=== PATIENT | male | born 1985 | race African-American/Black ===

== ENCOUNTER 2017-05-01 13:47 | Emergency (ER) | payer BC, SELFPAY | END 2017-05-01 15:08 | disposition home or self-care (01) | PROVIDERS: Emergency Provider Nurse Practitioner; Visit Provider Nurse Practitioner | DX: S62.91XA Unspecified fracture of right hand, initial encounter for closed fracture (principal); W22.8XXA Striking against or struck by other objects, initial encounter; Y92.019 Unspecified place in single-family (private) house as the place of occurrence of the external cause | CPT/HCPCS: 29125; 73130; 99203 ==

== ENCOUNTER → 2017-05-02 | Outpatient (CLI) | payer BC, SELFPAY | PROVIDERS: Family Provider Internal Medicine Adolescent Medicine; Visit Provider Orthopaedic Surgery | DX: M25.512 Pain in left shoulder (principal) | CPT/HCPCS: 73030 ==

== ENCOUNTER → 2017-05-15 10:30 | Outpatient (CLI) | payer BC, SELFPAY ==
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
== END ==
PROVIDERS: PCP Internal Medicine Adolescent Medicine; Visit Provider Orthopaedic Surgery
DX: S62.339D Displaced fracture of neck of unspecified metacarpal bone, subsequent encounter for fracture with routine healing (principal)
CPT/HCPCS: 73130

== ENCOUNTER → 2017-05-31 09:58 | Outpatient (CLI) | payer BC, SELFPAY ==
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
== END ==
PROVIDERS: PCP Internal Medicine Adolescent Medicine; Visit Provider Orthopaedic Surgery
DX: S69.90XA Unspecified injury of unspecified wrist, hand and finger(s), initial encounter (principal)
CPT/HCPCS: 73130

== ENCOUNTER → 2017-11-18 17:19 | Outpatient (CLI) | payer BC, SELFPAY ==
[2017-11-18 18:02] LABS: Basophils % 0.6 % (0.1-2.0); Eosinophils # 0.3 K/mm3 (0.0-0.4); Eosinophils % 3.7 % (0.1-12.0); Hematocrit 47.8 % (42.0-52.0); Hemoglobin 14.4 g/dL (14.1-18.0); Lymphocytes # 2.4 K/mm3 (0.7-4.5); Lymphocytes % 31.9 K/mm3 (10-50); Mean Corpuscular HGB Conc 30.2 g/dL (31.8-35.4); Mean Corpuscular Hemoglobin 24.8 pg (27.0-31.2); Mean Corpuscular Volume 82.2 fl (80-94); Mean Platelet Volume 7.6 fl (7.4-10.4); Monocytes # 0.5 K/mm3 (0.1-1.0); Monocytes % 6.1 % (1.7-9.3); Neutrophils # 4.3 K/mm3 (1.8-7.8); Neutrophils % 57.7 % (37.0-80.0); Platelet Count 358 K/mm3 (142-424); Red Blood Count 5.82 M/mm3 (4.60-6.20); Red Cell Distribution Width 13.5 % (11.5-17.5); White Blood Count 7.5 K/mm3 (4.8-10.8)
[2017-11-18 18:54] LABS: Alanine Aminotransferase 34 U/L (12-78); Albumin Level 3.7 gm/dL (3.4-5.0); Albumin/Globulin Ratio 0.9 (1.1-1.8); Alkaline Phosphatase 55 U/L (46-116); Anion Gap 10.4 mEq/L (5-15); Aspartate Amino Transferase 24 U/L (15-37); Bilirubin,Total 0.3 mg/dL (0.2-1.0); Blood Urea Nitrogen 8 mg/dL (7-18); Calcium 8.9 mg/dL (8.5-10.1); Carbon Dioxide 28 mmol/L (21.0-32.0); Chloride 106 mmol/L (98-107); Chol/HDL Ratio 2.8 (1-3.5); Cholesterol 122 mg/dL (140-200); Creatinine,Serum 0.93 mg/dL (0.70-1.30); Estimated Glomerular Filt Rate 94 ml/min (>60); GFR (African American) 113 ML/MIN (>60); Globulin 4.1 gm/dl (1.3-3.2); Glucose 93 mg/dL (74-106); HDL Cholesterol 44 mg/dL (27-67); LDL Cholesterol 47 mg/dL (0-130); Potassium 4.4 mmoL/L (3.5-5.1); Sodium 140 mmol/L (136-145); Thyroid Stimulating Hormone 1.99 uIU/ml (0.358-3.740); Total Protein,Serum 7.8 gm/dL (6.4-8.2); Triglycerides 157 mg/dL (30-200); Triiodothryronine (T3) Uptake 33 % (31-39); VLDL Cholesterol 31 mg/dL (0-40)
== END ==
PROVIDERS: Visit Provider Internal Medicine Adolescent Medicine
DX: Z00.00 Encounter for general adult medical examination without abnormal findings (principal); R40.0 Somnolence
CPT/HCPCS: 36415; 80053; 80061; 84436; 84443; 84479; 85025

== ENCOUNTER → 2017-12-11 15:58 | Outpatient (CLI) | payer BC, SELFPAY | PROVIDERS: PCP Internal Medicine Adolescent Medicine; Visit Provider Internal Medicine Adolescent Medicine | DX: G47.30 Sleep apnea, unspecified (principal); I10 Essential (primary) hypertension; R40.0 Somnolence; R06.83 Snoring; E66.9 Obesity, unspecified | CPT/HCPCS: 95806 ==

== ENCOUNTER → 2020-11-29 11:53 | Outpatient (CLI) | payer BC, SELFPAY | PROVIDERS: PCP Internal Medicine Adolescent Medicine; Visit Provider Internal Medicine Adolescent Medicine | DX: G47.33 Obstructive sleep apnea (adult) (pediatric) (principal); I10 Essential (primary) hypertension | CPT/HCPCS: G0399 ==

== ENCOUNTER 2020-12-24 11:05 | Observation (INO) | payer BC, SELFPAY ==
[2020-12-24] VITALS (9 sets, daily range): BP systolic 142–191; BP diastolic 87–113; PULSE 80–89; RESP 10–33; TEMP 36.6–36.9; O2SAT 93–100; BMI 51.1; BMI 56.9
--- NOTE | 2020-12-24 11:07 | ECG_ITS ---
APPROVED REPORT Exam: Resting ECG HR:87 bpm ECG Measurements Heart Rate [address] 164 P 53 QRSd 92 QRS 25 QT 340 T -21 QTc 409 Conclusion Sinus rhythm with occasional premature ventricular complexes T wave abnormality, consider inferolateral ischemia Abnormal ECG Electronically signed by : Vazquez Fisher MD 12/25/2020 09:00:19
--- NOTE | 2020-12-24 11:13 | XR_ITS ---
PROCEDURE INFORMATION: Exam: XR Chest Exam date and time: 12/24/2020 11:13 AM Age: 35 years old Clinical indication: Other: Chest pain TECHNIQUE: Imaging protocol: XR of the chest. Views: 2 views. COMPARISON: MARILU [id number] 05/02/2017 11:23 AM FINDINGS: Decreased lung volumes otherwise unremarkable appearing lungs and mediastinum. No effusion or pneumothorax. Cardiomediastinal silhouette is normal. IMPRESSION: Decreased lung volumes otherwise unremarkable study without an active lung lesion.
--- NOTE | 2020-12-24 11:14 | HMH.EDGENADL ---
ED Disposition Clinical Impression: Pulmonary emboli Qualifiers: Pulmonary embolism type: unspecified Chronicity: acute Acute cor pulmonale presence: unspecified Qualified Code(s): I26.99 - Other pulmonary embolism without acute cor pulmonale Disposition: Admitted As Inpatient Condition on Discharge: Good Referrals: Provider,Referral, [Referring] - - Critical Care Critical Care Time: No Attestation: On , the high probability of a clinically significant, sudden or life threatening deterioration of the following system(s) required my full and direct attention, intervention and personal management. The time I documented below is in addition to time spent performing reported procedures but includes the following listed in this critical care notation. Medical Decision Making - [place] Inquiry Pt receiving controlled substance: No Vital Signs: 12/24/20 11:05 12/24/20 11:21 12/24/20 12:41 Temperature 98 F Temperature Source Oral Pulse Rate 87 81 Pulse Rate [Radial] 89 Respiratory Rate 22 10 L 33 H Blood Pressure 163/94 H 183/100 H Blood Pressure [Right Arm] 163/94 H Blood Pressure Mean 127 Blood Pressure Mean [Right Arm] 117 Blood Pressure Source Automatic Cuff Blood Pressure Position Supine Blood Pressure Position [Right Arm] Sitting 02 Sat by Pulse Oximetry 98 100 93 L Oxygen Delivery Method Room Air 12/24/20 13:03 12/24/20 13:05 Temperature Temperature Source Pulse Rate 83 89 Pulse Rate [Radial] Respiratory Rate 14 18 Blood Pressure 191/113 H 190/109 H Blood Pressure [Right Arm] Blood Pressure Mean 127 136 Blood Pressure Mean [Right Arm] Blood Pressure Source Blood Pressure Position Blood Pressure Position [Right Arm] 02 Sat by Pulse Oximetry 95 98 Oxygen Delivery Method - Lab Data Lab Results 12/24/20 11:15: WBC 7.5, RBC 5.72, Hgb 14.7, Hct 45.4, MCV 79.4 L, MCH 25.6 L, MCHC 32.3, RDW 14.4, Plt Count 366, MPV 7.9, Neut % (Auto) 63.5, Lymph % (Auto) 27.5, Granite % (Auto) 5.3, Eos % (Auto) 2.9, Baso % (Auto) 0.8, Neut # (Auto) 4.7, Lymph # (Auto) 2.0, Granite # (Auto) 0.4, Eos # (Auto) 0.2, Baso # (Auto) 0.1 12/24/20 11:15: Sodium 140, Potassium 4.2, Chloride 104, Carbon Dioxide 22, Anion Gap 18.2 H, BUN 8 L, Creatinine 0.80, Estimated Creat Clear 157, Estimated GFR 109, Est GFR ( Amer) 132, Glucose 118 H, Calcium 9.3, Troponin I < 0.01 Result diagrams: 12/24/20 11:15 12/24/20 11:15 Orders (Tests/Meds): ED MEDICATIONS Generic Name Dose Route Start Last Admin Trade Name Freq PRN Reason Stop Dose Admin Rivaroxaban 15 mg 12/24/20 12:46 12/24/20 12:58 Rivaroxaban 15mg Tablet PO 01/23/21 12:45 15 mg BIDWMEAL BRANT Administration Discontinued Medications Generic Name Dose Route Start Last Admin Trade Name Freq PRN Reason Stop Dose Admin Aspirin 324 mg 12/24/20 12:23 12/24/20 12:29 Aspirin 81mg Chewable Tablet PO 12/24/20 12:24 324 mg ONCE ONE Administration Enoxaparin Sodium 190 mg 12/24/20 12:53 12/24/20 12:58 Enoxaparin 100mg/Ml Syringe 1 mg/kg (190 mg) 12/24/20 12:54 190 mg SQ Administration ONCE ONE Iopamidol 170 ml 12/24/20 12:17 12/24/20 12:18 Iopamidol-370 (76%);100ml Bottle IV 12/24/20 12:18 170 ml ONCE ONE Administration Ondansetron HCl 4 mg 12/24/20 12:10 12/24/20 12:11 Ondansetron 4mg/2ml Vial IV 12/24/20 12:11 4 mg ONCE ONE Administration Sodium Chloride 100 ml 12/24/20 12:17 12/24/20 12:18 0.9 % Sodium Chloride 50 Ml Vial IV 12/24/20 12:18 100 ml ONCE ONE Administration Sodium Chloride 10 ml 12/24/20 12:17 12/24/20 12:18 Sodium Chloride 0.9% 10ml Syr (Rad Only) IV 12/24/20 12:18 10 ml ONCE ONE Administration ORDERS Category Date Time Status Rapid PCR Covid and Flu A/B Stat Lab 12/24/20 13:12 Received Troponin I Q3H Lab 12/24/20 14:15 Ordered Troponin I Q3H Lab 12/24/20 17:15 Ordered - Radiology Data #1 Image(s): Chest
--- NOTE | 2020-12-24 11:24 | CT_ITS ---
PROCEDURE INFORMATION: Exam: CTA Chest With Contrast Exam date and time: 12/24/2020 11:24 AM Age: 35 years old Clinical indication: Other: Chest pain TECHNIQUE: Imaging protocol: Computed tomographic angiography of the chest with contrast. 3D rendering (Not supervised by radiologist): MIP and/or 3D reconstructed images were created by the technologist. Radiation optimization: All CT scans at this facility use at least one of these dose optimization techniques: automated exposure control; mA and/or kV adjustment per patient size (includes targeted exams where dose is matched to clinical indication); or iterative reconstruction. Contrast material: ISOVUE; Contrast volume: 70 ml; Contrast route: INTRAVENOUS (IV); COMPARISON: CR XR CHEST 2V 12/24/2020 11:21 AM FINDINGS: CT ANGIOGRAM: Suboptimal study with due to patient's body habitus and extensive respiratory/cardiac motion. Occlusive and subocclusive filling defects within the segmental/subsegmental pulmonary arteries bilaterally most notable in the RIGHT upper lobe extending into the distal RIGHT main pulmonary artery. . No thoracic aortic aneurysm or dissection. Enlarged main, right and left pulmonary arteries with the main pulmonary artery measuring 3.1 cm suggestive of pulmonary arterial hypertension. . LUNGS/PLEURA: Dependent atelectasis in the lung bases, groundglass opacities, scarring and peribronchial thickening with narrowing of the distal airways. No focal area of consolidation and no lung mass. No obstructive endobronchial mass or abnormality. No pleural effusion or pneumothorax. . MEDIASTINUM: Mild cardiomegaly without pericardial effusion. No bulky mediastinal or hilar lymph node enlargement. Mildly distended fluid/air containing esophagus with mild wall thickening suggestive of esophagitis/reflux. . OTHER STRUCTURES: Chronic degenerative changes in the visualized spine. Incidental note of hepatomegaly with probable fatty infiltration. IMPRESSION: 1. POSITIVE study for acute pulmonary thromboembolism with moderate clot burden with evidence of pulmonary arterial hypertension without RIGHT heart strain. 2. Other nonemergent/incidental findings as described. COMMENTS: Suboptimal study due to extensive streak artifact due to extensive motion artifact and patient's body habitus.
--- NOTE | 2020-12-24 11:24 | CT_ITS ---
PROCEDURE INFORMATION: Exam: CT Head Without Contrast Exam date and time: 12/24/2020 11:24 AM Age: 35 years old Clinical indication: Numbness / parasthesia; Right; Additional info: Right hand numbness TECHNIQUE: Imaging protocol: Computed tomography of the head without contrast. Radiation optimization: All CT scans at this facility use at least one of these dose optimization techniques: automated exposure control; mA and/or kV adjustment per patient size (includes targeted exams where dose is matched to clinical indication); or iterative reconstruction. COMPARISON: No relevant prior studies available. FINDINGS: Brain: Symmetric caliber of the cortical sulci. No acute cortical infarct, mass effect, or intracranial hemorrhage. If demyelinating disease is of clinical concern, MRI may be of benefit for further evaluation, as clinically indicated. Cerebral ventricles: Normal configuration of the ventricles. Paranasal sinuses: 9 mm polypoid lesion in the right maxillary sinus. Mastoid air cells: No mastoid effusion. Bones/joints: No acute calvarial pathology. Soft tissues: Unremarkable soft tissues. IMPRESSION: No acute intracranial pathology.
[2020-12-24 11:26] LABS: Basophils # 0.1 K/mm3 (0-0.2); Basophils % 0.8 % (0.1-2.0); Eosinophils # 0.2 K/mm3 (0.0-0.4); Eosinophils % 2.9 % (0.1-12.0); Hematocrit 45.4 % (42.0-52.0); Hemoglobin 14.7 g/dL (14.1-18.0); Lymphocytes % 27.5 % (10-50); Mean Corpuscular HGB Conc 32.3 g/dL (31.8-35.4); Mean Corpuscular Hemoglobin 25.6 pg (27.0-31.2); Mean Corpuscular Volume 79.4 fl (80-94); Mean Platelet Volume 7.9 fl (7.4-10.4); Monocytes # 0.4 K/mm3 (0.1-1.0); Monocytes % 5.3 % (1.7-9.3); Neutrophils # 4.7 K/mm3 (1.8-7.8); Neutrophils % 63.5 % (37.0-80.0); Platelet Count 366 K/mm3 (142-424); Red Blood Count 5.72 M/mm3 (4.60-6.20); Red Cell Distribution Width 14.4 % (11.5-17.5); White Blood Count 7.5 K/mm3 (4.8-10.8)
--- NOTE | 2020-12-24 11:26 | PC.NURSE ---
pt gone to xray
[2020-12-24 11:34] LABS: Chloride 104 mmol/L (98-107); Sodium 140 mmol/L (136-145)
[2020-12-24 11:35] LABS: Potassium 4.2 mmoL/L (3.5-5.1)
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
[2020-12-24 11:37] LABS: Anion Gap 18.2 mEq/L (5-15); Blood Urea Nitrogen 8 mg/dl (9-20); Carbon Dioxide 22 mmol/L (22.0-30.0); Creatinine Clearance Estimated 157 mL/min (50-200); Estimated Glomerular Filt Rate 109 ml/min (>60); GFR (African American) 132 ML/MIN (>60)
[2020-12-24 11:38] LABS: Calcium 9.3 mg/dl (8.4-10.2); Glucose 118 mg/dl (74-100)
[2020-12-24 11:52] LABS: Troponin I < 0.01 ng/ml (0.00-0.034)
--- NOTE | 2020-12-24 13:20 | PC.NURSE ---
dr le on the phone with dr holloway
[2020-12-24 13:23] LABS: Coronavirus 19, PCR Not Detected (NotDetected); Influenza A, PCR Not Detected (NotDetected); Influenza B, PCR Not Detected (NotDetected)
--- NOTE | 2020-12-24 13:48 | PC.NURSE ---
REPORT CALLED TO THIEN PUGH
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
--- NOTE | 2020-12-24 14:25 | PC.NURSE ---
2nd floor here to get pt
[2020-12-24 14:51] LABS: Troponin I < 0.01 ng/ml (0.00-0.034)
[2020-12-25] VITALS (11 sets, daily range): BP systolic 128–154; BP diastolic 62–95; PULSE 57–90; RESP 17–24; TEMP 36.4–36.7; O2SAT 94–100; BMI 53.3
--- NOTE | 2020-12-25 05:58 | PC.NURSE ---
A&OX4. PT TOLERATING RA AWAKE AND CPAP WHILE SLEEPING. PT HAS NOT C/O ANY PAIN, OR SOA. HAS HOWEVER STATED HE HAS INTERMITTENT CHEST TIGHTNESS. PT HAS SLEPT MAJORITY OF SHIFT. INDEPENDENT IN ROOM. VSS WILL CONTINUE TO MONITOR.
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
--- NOTE | 2020-12-25 19:25 | PC.NURSE ---
pt is AxOx4, has remained on room air t/o shift, no complaints of pain or SOA
[2020-12-26] VITALS: PULSE 60
[2020-12-26 04:00] VITALS: BP 130/79; PULSE 65; PULSE 70; RESP 22; TEMP 36.7; O2SAT 100
--- NOTE | 2020-12-26 04:08 | PC.NURSE ---
A&OX4. TOLERATING RA WELL WHILE AWAKE AND CPAP WHILE SLEEPING. PT HAS HAD NO C/O PAIN/SOA THUS FAR. PT HAS BEEN RESTING IN BED COMFORTABLY T/O SHIFT. VSS WILL CONTINUE TO MONITOR.
[2020-12-26 04:53] VITALS: BMI 53.2
[2020-12-26 08:00] VITALS: BP 170/115; PULSE 70; PULSE 74; RESP 22; TEMP 36.7; O2SAT 100
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
--- NOTE | 2020-12-26 09:33 | SW/DCPLANNER ---
An order for a CPAP machine from Dr Fisher office has been faxed to [facility] in [place]. I spoke Mary with to confirm that order has been faxed and patient is on waiting list.
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
[2020-12-26 11:53] VITALS: BP 166/92; PULSE 68; RESP 20; TEMP 36.7; O2SAT 99
[2020-12-26 12:00] VITALS: PULSE 65
--- NOTE | 2020-12-26 13:29 | HMH.PHAINT ---
MEDICATION DISCHARGE COUNSELING REVIEWED. PATIENT ASKED ABOUT XARLETO 15MG BID DOSING AND WHEN TO START XARELTO 20MG DAILY DOSING. ALSO, ASKED ABOUT APPROPRIATE TIMING OF WHEN TO TAKE METHOCARBAMOL AND GABAPENTIN.
== END 2020-12-26 15:02 | disposition home or self-care (01) ==
LOC: ER 13:12 → 2ND 14:33
PROVIDERS: Admitting Provider Internal Medicine Adolescent Medicine; Emergency Provider Emergency Medicine; PCP Internal Medicine Adolescent Medicine; Visit Provider Internal Medicine Adolescent Medicine
DX: I26.99 Other pulmonary embolism without acute cor pulmonale (principal); Z20.822 Contact with and (suspected) exposure to COVID-19; E66.01 Morbid (severe) obesity due to excess calories; Z68.43 Body mass index [BMI] 50.0-59.9, adult; Z79.01 Long term (current) use of anticoagulants; I10 Essential (primary) hypertension; Z79.899 Other long term (current) drug therapy
CPT/HCPCS: 70450; 70496; 70498; 71046; 71275; 80048; 84484; 85025; 93005; 93306; 93970; 96372; 96374; 99284; G0378; J2405; Q9967; U0003

== ENCOUNTER → 2020-12-28 12:11 | Outpatient (CLI) | payer BC, SELFPAY ==
[2020-12-28 14:35] LABS: Erythrocyte Sedimentation Rate 21 mm/hr (0-15)
[2020-12-28 14:52] LABS: C-Reactive Protein 19.8 mg/L (0-4)
[2020-12-28 15:32] LABS: Activated Partial Thrombo Time 38.1 seconds (22.8-30.6); INR 1.05 (0.9-1.1); Prothrombin Time 12.3 seconds (10.1-12.5)
[2020-12-28 16:02] LABS: Hemoglobin A1C 5.5 % (4.0-6.0)
[2020-12-30 13:10] LABS: Anti-Centromere B Antibodies <0.2 AI (0.0-0.9); Anti-DNA (DS) Ab Qn 2 IU/mL (0-9); Anti-Jo-1 <0.2 AI (0.0-0.9); Anti-Smith Antibody <0.2 AI (0.0-0.9); Antichromatin Antibodies <0.2 AI (0.0-0.9); Antiscleroderma-70 Antibodies <0.2 AI (0.0-0.9); RNP Antibodies <0.2 AI (0.0-0.9); Sjogren's Anti-SS-A <0.2 AI (0.0-0.9); Sjogren's Anti-SS-B <0.2 AI (0.0-0.9)
[2020-12-30 17:34] LABS: Cytoplasmic (C-ANCA) <1:20 titer (Neg:<1:20); Perinuclear (P-ANCA) <1:20 titer (Neg:<1:20)
[2020-12-31 05:01] LABS: Protein C Antigen 76 % (60-150); Protein S Antigen, Total 106 % (60-150)
[2021-01-01 10:29] LABS: Lupus Reflex Interpretation Comment: (.); PTT-LA 50.2 sec (0.0-51.9); dRVVT 66.7 sec (0.0-47.0); dRVVT Confirm 1.5 ratio (0.8-1.2); dRVVT Mix 51.1 sec (0.0-40.4)
== END ==
PROVIDERS: Visit Provider Nurse Practitioner Family
DX: R07.9 Chest pain, unspecified (principal); R06.02 Shortness of breath; I26.99 Other pulmonary embolism without acute cor pulmonale; R73.09 Other abnormal glucose
CPT/HCPCS: 36415; 81241; 83036; 85302; 85305; 85610; 85613; 85651; 85730; 86140; 86225; 86235; 86256

== ENCOUNTER 2021-01-01 15:15 | Emergency (ER) | payer BC, SELFPAY ==
[2021-01-01 15:16] VITALS: BP 134/80; PULSE 84; RESP 18; TEMP 36.8; O2SAT 98; BMI 56.9
--- NOTE | 2021-01-01 15:26 | XR_ITS ---
PROCEDURE INFORMATION: Exam: XR Chest Exam date and time: 01/01/2021 3:26 PM Age: 35 years old Clinical indication: Sternal or substernal pain; Patient HX: Chest pain , numbness in right hand TECHNIQUE: Imaging protocol: XR of the chest. Views: 1 view. COMPARISON: CR XR CHEST 2V 12/24/2020 11:21 AM FINDINGS: Lungs: Unremarkable. No consolidation. Pleural spaces: Unremarkable. No pleural effusion. No pneumothorax. Heart/Mediastinum: Unremarkable. No cardiomegaly. Bones/joints: Unremarkable. IMPRESSION: No acute findings.
--- NOTE | 2021-01-01 15:55 | PC.NURSE ---
unsuccessful IV attempts x2. ER MD agreed to establish ultrasound guided IV
[2021-01-01 16:24] LABS: Basophils % 0.5 % (0.1-2.0); Eosinophils # 0.1 K/mm3 (0.0-0.4); Eosinophils % 1.7 % (0.1-12.0); Hematocrit 45.5 % (42.0-52.0); Hemoglobin 14.2 g/dL (14.1-18.0); Lymphocytes # 1.7 K/mm3 (0.7-4.5); Lymphocytes % 25.4 % (10-50); Mean Corpuscular HGB Conc 31.2 g/dL (31.8-35.4); Mean Corpuscular Hemoglobin 25.8 pg (27.0-31.2); Mean Corpuscular Volume 82.5 fl (80-94); Mean Platelet Volume 7.8 fl (7.4-10.4); Monocytes # 0.3 K/mm3 (0.1-1.0); Monocytes % 4.6 % (1.7-9.3); Neutrophils # 4.6 K/mm3 (1.8-7.8); Neutrophils % 67.8 % (37.0-80.0); Platelet Count 460 K/mm3 (142-424); Red Blood Count 5.51 M/mm3 (4.60-6.20); Red Cell Distribution Width 14.2 % (11.5-17.5); White Blood Count 6.8 K/mm3 (4.8-10.8)
[2021-01-01 16:31] VITALS: BP 139/71; PULSE 68; RESP 19; O2SAT 95
[2021-01-01 16:37] LABS: Chloride 104 mmol/L (98-107); Potassium 4.2 mmoL/L (3.5-5.1); Sodium 140 mmol/L (136-145)
[2021-01-01 16:40] LABS: Anion Gap 16.2 mEq/L (5-15); Blood Urea Nitrogen 5 mg/dl (9-20); Calcium 9.2 mg/dl (8.4-10.2); Carbon Dioxide 24 mmol/L (22.0-30.0); Creatinine Clearance Estimated 125 mL/min (50-200); Estimated Glomerular Filt Rate 95 ml/min (>60); GFR (African American) 116 ML/MIN (>60); Glucose 111 mg/dl (74-100)
[2021-01-01 16:55] LABS: Troponin I < 0.01 ng/ml (0.00-0.034)
[2021-01-01 17:01] VITALS: BP 135/76; PULSE 66; RESP 22; O2SAT 98
--- NOTE | 2021-01-01 17:18 | HMH.EDCP ---
ED Disposition Clinical Impression: Nonspecific chest pain Disposition: Home, Self-Care Condition on Discharge: Good Instructions: DI for Atypical Chest Pain Referrals: Provider,Alvino, [Primary Care Provider] - Saturnino Wilson MD [Staff Physician] - - Critical Care Critical Care Time: No Attestation: On 01/01/21, the high probability of a clinically significant, sudden or life threatening deterioration of the following system(s) required my full and direct attention, intervention and personal management. The time I documented below is in addition to time spent performing reported procedures but includes the following listed in this critical care notation. Medical Decision Making - Medical Records Medical records reviewed: Yes: I reviewed the patient's medical records. - [place] Inquiry Pt receiving controlled substance: Yes [place] was queried for this patient: No Reason not queried -: [place] login issues Risks and benefits of using a controlled substance: were discussed with pt by me Vital Signs: 01/01/21 15:16 Temperature 98.3 F Temperature Source Oral Pulse Rate [Right] 84 Respiratory Rate 18 Blood Pressure [Right Arm] 134/80 Blood Pressure Mean [Right Arm] 98 02 Sat by Pulse Oximetry 98 Oxygen Delivery Method Room Air - Lab Data Lab Results 01/01/21 16:18: WBC 6.8, RBC 5.51, Hgb 14.2, Hct 45.5, MCV 82.5, MCH 25.8 L, MCHC 31.2 L, RDW 14.2, Plt Count 460 H, MPV 7.8, Neut % (Auto) 67.8, Lymph % (Auto) 25.4, [place] % (Auto) 4.6, Eos % (Auto) 1.7, Baso % (Auto) 0.5, Neut # (Auto) 4.6, Lymph # (Auto) 1.7, [place] # (Auto) 0.3, Eos # (Auto) 0.1, Baso # (Auto) 0.0 01/01/21 16:18: Sodium 140, Potassium 4.2, Chloride 104, Carbon Dioxide 24, Anion Gap 16.2 H, BUN 5 L, Creatinine 0.90, Estimated Creat Clear 125, Estimated GFR 95, Est GFR ( Amer) 116, Glucose 111 H, Calcium 9.2, Troponin I < 0.01 Result diagrams: 01/01/21 16:18 08/22/21 16:18 Orders (Tests/Meds): ED MEDICATIONS Generic Name Dose Route Start Last Admin Trade Name Freq PRN Reason Stop Dose Admin Morphine Sulfate 4 mg 01/01/21 18:03 Morphine 4mg/Ml Syringe IV 01/01/21 18:04 ONCE ONE Discontinued Medications Generic Name Dose Route Start Last Admin Trade Name Freq PRN Reason Stop Dose Admin Morphine Sulfate 4 mg 01/01/21 17:17 01/01/21 17:56 Morphine 4mg/Ml Syringe IV 01/01/21 17:18 Not Given ONCE ONE Ondansetron HCl 4 mg 01/01/21 17:17 01/01/21 17:56 Ondansetron 4mg/2ml Vial IV 01/01/21 17:18 Not Given ONCE ONE ORDERS Category Date Time Status Troponin I Q3H Lab 01/01/21 18:30 Ordered Troponin I Q3H Lab 01/01/21 21:30 Ordered - Radiology Data #1 Image(s): Chest Image Reviewed: Yes I reviewed the patient's radiology results, Yes I reviewed the patient's radiology image, Yes I have reviewed radiologist's interpretation Preliminary Findings: Normal/NAD, No Infiltrates Seen - ECG Data Tracing #1 Normal ventricular rate 87 bpm, NJ interval 170 ms, normal QTC. Sinus rhythm with nonspecific ST changes. ECG initial impression date: 01/01/21 ECG initial impression time: 15:09 - Reevaluation(s) Time: 18:04 Reevaluation #1: On reevaluation, patient is feeling much better. Chest pain is improved. Troponin negative. Chest are unremarkable. Patient needs follow-up with PCP. Continue current medication management. Given strict return precautions. Verbalized understanding Medical Decision Narrative: 35-year-old male presented to the emergency department with some nonspecific subacute chest discomfort. Patient has a recent diagnosis of PE. Compliant with his anticoagulation. No evidence of respiratory distress or hypoxia. Work-up initiated. Chest Pain HPI - General Chief Complaint: Chest Pain Stated Complaint: Chest Pain Time Seen by Provider: 01/01/21 15:20 Mode of Arrival: EMS Limitations: No Limitations Description of Symptoms (Recalled from E
[2021-01-01 17:31] VITALS: BP 128/83; PULSE 69; RESP 12; O2SAT 96
[2021-01-01 18:01] VITALS: BP 135/80; PULSE 65; RESP 15; O2SAT 96
[2021-01-01 18:43] VITALS: BP 135/80; PULSE 65; RESP 15; TEMP 36.8; O2SAT 96
--- NOTE | 2021-01-02 15:09 | ECG_ITS ---
APPROVED REPORT Exam: Resting ECG HR:87 bpm ECG Measurements Heart Rate 87 AXES PA 178 P 47 QRSd 96 QRS -10 QT 348 T 63 QTc 418 Conclusion Normal sinus rhythm Moderate voltage criteria for LVH Poor R wave progression, unchanged from prior Abnormal ECG Electronically signed by : Vazquez Fisher MD 01/02/2021 18:02:45
== END 2021-01-01 18:45 | disposition home or self-care (01) ==
PROVIDERS: Emergency Provider Emergency Medicine
DX: R07.89 Other chest pain (principal); I10 Essential (primary) hypertension
CPT/HCPCS: 71045; 80048; 84484; 85025; 93005; 96374; 96375; 99283; J2405

== ENCOUNTER → 2021-01-23 13:00 | Outpatient (CLI) | payer BC, SELFPAY ==
--- NOTE | 2021-01-23 13:00 | MR_ITS ---
PROCEDURE: MR HEAD/BRAIN WO CON CLINICAL INDICATION: Harlequin syndrome COMPARISON: No exams were available for comparison TECHNIQUE: Routine multiplanar multi echo sequences are performed without gadolinium enhancement. FINDINGS: No midline shift, mass effect, intracranial hemorrhage, or hydrocephalus. The cerebellopontine angles, cerebellum, and mid brain have unremarkable appearance. No evidence of acute infarction. Unremarkable white matter signal intensity. There is a partial empty sella. The optic chiasm, corpus callosum, and craniocervical junction has an unremarkable appearance. There is mild dysconjugate gaze with the right eye slightly more rotated toward the right and the left eye.. No mastoid effusion or sinus air-fluid level. There is a rounded lesion in the posterior aspect of the right maxillary sinus which could represent a complex retention cyst. IMPRESSION: 1. No acute intracranial findings. 2. Partial empty sella. 3. Dysconjugate gaze. Dictated by: Zay Salazar MD 01/24/2021 09:53 Zay Salazar MD in OV 01/24/2021 09:53
== END ==
PROVIDERS: PCP Internal Medicine Adolescent Medicine; Visit Provider Specialist
DX: L74.4 Anhidrosis (principal)
CPT/HCPCS: 70551

== ENCOUNTER → 2021-02-06 14:51 | Outpatient (CLI) | payer BC, SELFPAY ==
[2021-02-06 15:56] LABS: Anion Gap 13.2 mEq/L (5-15); Blood Urea Nitrogen 9 mg/dl (9-20); Calcium 8.9 mg/dl (8.4-10.2); Carbon Dioxide 23 mmol/L (22.0-30.0); Chloride 106 mmol/L (98-107); Estimated Glomerular Filt Rate 109 ml/min (>60); GFR (African American) 132 ML/MIN (>60); Glucose 123 mg/dl (74-100); Potassium 4.2 mmoL/L (3.5-5.1); Sodium 138 mmol/L (136-145)
== END ==
PROVIDERS: Visit Provider Physician Assistant
DX: R06.00 Dyspnea, unspecified (principal); R07.89 Other chest pain; I10 Essential (primary) hypertension; I26.99 Other pulmonary embolism without acute cor pulmonale; E66.01 Morbid (severe) obesity due to excess calories; G47.33 Obstructive sleep apnea (adult) (pediatric); K21.9 Gastro-esophageal reflux disease without esophagitis; R20.0 Anesthesia of skin; Z68.43 Body mass index [BMI] 50.0-59.9, adult
CPT/HCPCS: 36415; 80048

== ENCOUNTER → 2021-02-08 14:10 | Outpatient (CLI) | payer BC, SELFPAY ==
--- NOTE | 2021-02-08 14:11 | MR_ITS ---
PROCEDURE: MR CERVICAL SPINE WO CON CLINICAL INDICATION: myelopathy COMPARISON: CT CT ANGIO NECK from 12/24/2020 MR MR THORACIC SPINE WO CON from 02/08/2021 TECHNIQUE: Standard multiplanar multiecho sequences are performed without contrast. 3-D MIP and myelographic images are also rendered and reviewed FINDINGS: There is normal alignment. No acute fracture or dislocation is evident. The craniocervical junction has an unremarkable appearance study is somewhat limited technically due to patient's body habitus and inability to remain still with the exam having to have been restarted multiple times. C2-C3, C3-C4, C4-C5, and C5-C6 have an unremarkable appearance. There is a small left paracentral disc protrusion at C6-C7 causing mild left-sided lateral recess narrowing. There is mild bilateral foraminal narrowing at this level with mild degenerative disc disease. On the sagittal T2 and stir images there is vague increased T2 signal in the posterior aspect of the cord at C2-C3 and from C3-C4 to the upper aspect of C5 best demonstrated on the sagittal STIR images. There is degenerative disc disease at T2-T3 with a small concentric bulging disc IMPRESSION: 1. Small left paracentral disc protrusion at C6-C7 2. Vague increased T2 signal involves the posterior aspect of the cord as seen on the sagittal images from the C2-C3 level to the upper aspect of C5. This could represent artifact as the study is very limited secondary to patient's body habitus and motion. Cannot exclude the possibility of lesions within the cord at these areas. Consider repeating exam without and with contrast to confirm presence of lesions and to evaluate for any enhancement. That study should also be performed with MS protocol as MS would be considered in the differential diagnosis.. Dictated by: Zay Salazar MD 02/09/2021 08:04 Zay Salazar MD in OV 02/09/2021 08:04
--- NOTE | 2021-02-08 14:11 | MR_ITS ---
PROCEDURE: MR THORACIC SPINE WO CON CLINICAL INDICATION: myelopathy COMPARISON: MR MR CERVICAL SPINE WO CON from 02/08/2021 TECHNIQUE: Routine multiplanar multi echo sequences are performed without gadolinium enhancement. FINDINGS: Study is limited technically due to patient's body habitus and the fact exam had debris repeated multiple times because of movement. There is normal alignment. No fracture or dislocation is evident. Degenerative disc disease is with bulging disc is present at T2-T3. The sagittal images suggest some mild expansion of the cord with slight increased T2 signal at T2-T3. This is not confirmed on the axial images however the axial images are very limited. No disc herniation or canal stenosis. No acute fracture or dislocation. IMPRESSION: Degenerative disc disease at T2-T3 with mild bulging disc. Sagittal images suggest mild expansion with increased T2 signal at the T2-T3 level. This could be due to artifact or lesion in the cord. Consider repeating exam without and with contrast and with MS protocol. Dictated by: Zay Salazar MD 02/09/2021 08:14 Zay Salazar MD in [place] 02/09/2021 08:14
== END ==
PROVIDERS: PCP Internal Medicine Adolescent Medicine; Visit Provider Specialist
DX: G99.2 Myelopathy in diseases classified elsewhere (principal); R06.00 Dyspnea, unspecified; I10 Essential (primary) hypertension; I26.99 Other pulmonary embolism without acute cor pulmonale; E66.01 Morbid (severe) obesity due to excess calories; G47.33 Obstructive sleep apnea (adult) (pediatric); R20.0 Anesthesia of skin; S69.90XA Unspecified injury of unspecified wrist, hand and finger(s), initial encounter; Z68.43 Body mass index [BMI] 50.0-59.9, adult
CPT/HCPCS: 72141; 72146; 76376

== ENCOUNTER → 2021-02-24 15:10 | Outpatient (CLI) | payer BC, SELFPAY ==
[2021-02-24 15:49] LABS: Anion Gap 14.6 mEq/L (5-15); Blood Urea Nitrogen 8 mg/dl (9-20); Calcium 9.1 mg/dl (8.4-10.2); Carbon Dioxide 22 mmol/L (22.0-30.0); Chloride 106 mmol/L (98-107); Estimated Glomerular Filt Rate 128 ml/min (>60); GFR (African American) 154 ML/MIN (>60); Glucose 101 mg/dl (74-100); Potassium 4.6 mmoL/L (3.5-5.1); Sodium 138 mmol/L (136-145)
== END ==
PROVIDERS: Visit Provider Internal Medicine Cardiovascular Disease
DX: I10 Essential (primary) hypertension (principal); I26.99 Other pulmonary embolism without acute cor pulmonale; K21.9 Gastro-esophageal reflux disease without esophagitis; G47.33 Obstructive sleep apnea (adult) (pediatric); E66.01 Morbid (severe) obesity due to excess calories; Z68.43 Body mass index [BMI] 50.0-59.9, adult
CPT/HCPCS: 36415; 80048

== ENCOUNTER → 2021-03-01 12:51 | Outpatient (CLI) | payer BC, SELFPAY ==
--- NOTE | 2021-03-01 12:51 | MR_ITS ---
PROCEDURE INFORMATION: Exam: MR Thoracic Spine Without and With Contrast Exam date and time: 03/01/2021 12:51 PM Age: 35 years old Clinical indication: Abnormal mri 02-08-21. TECHNIQUE: Imaging protocol: Multiplanar magnetic resonance images of the thoracic spine without and with contrast. Contrast material: PROHANCE; Contrast volume: 30 ml; Contrast route: IV; COMPARISON: MR THORACIC SPINE WO CON 02/08/2021 3:25 PM FINDINGS: Vertebrae: Examination is extremely limited due to patient body habitus and patient motion artifact. Spinal cord: A persistent focus of high signal abnormality within the thoracic cord at T3 is suspected. This is poorly characterized due to patient's size and motion artifact. Discs/Spinal canal/Neural foramina: There are degenerative changes throughout the thoracic spine including disc space narrowing, disc desiccation, and disc bulging. There is no significant spinal canal stenosis or thoracic cord compression. Soft tissues: Unremarkable. IMPRESSION: 1. Examination is extremely limited due to patient body habitus and patient motion artifact. 2. A persistent focus of high signal abnormality within the thoracic cord at T3 is suspected. This is poorly characterized due to patient's size and motion artifact. This is nonspecific but follow-up is recommended. Consider follow-up imaging on a 3T magnet as well as better sedation. 3. There are degenerative changes throughout the thoracic spine including disc space narrowing, disc desiccation, and disc bulging. There is no significant spinal canal stenosis or thoracic cord compression.
--- NOTE | 2021-03-01 12:51 | MR_ITS ---
PROCEDURE INFORMATION: Exam: MR Cervical Spine Without and With Contrast Exam date and time: 03/01/2021 12:51 PM Age: 35 years old Clinical indication: Suspected myelopathy. TECHNIQUE: Imaging protocol: Multiplanar magnetic resonance images of the cervical spine without and with contrast. Contrast material: PROHANCE; Contrast volume: 30 ml; Contrast route: IV; COMPARISON: MR CERVICAL SPINE WO CON 02/08/2021 2:36 PM FINDINGS: Vertebrae: Unremarkable. Spinal cord: Normal signal. No cord compression. C2-C3: No significant disc disease. No significant spinal stenosis. C3-C4: No significant disc disease. No significant spinal stenosis. C4-C5: No significant disc disease. No significant spinal stenosis. C5-C6: No significant disc disease. No significant spinal stenosis. C6-C7: There is degenerative disc disease including disc space narrowing and dessication. There is a moderate disc/osteophyte complex that flattens the ventral thecal sac. There is a moderate left paracentral disc protrusion. There is compromise of the left lateral recess. C7-T1: No significant disc disease. No significant spinal stenosis. Soft tissues: Unremarkable. Brain: There is no abnormal enhancement. IMPRESSION: Degenerative changes at C6/7. Please see details above.
== END ==
PROVIDERS: PCP Internal Medicine Adolescent Medicine; Visit Provider Specialist
DX: G95.9 Disease of spinal cord, unspecified (principal)
CPT/HCPCS: 72156; 72157; 76376; A9576

== ENCOUNTER 2021-03-02 09:00 | Outpatient (RCR) | payer BC, SELFPAY ==
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
--- NOTE | 2021-02-03 14:49 | HMH.RHREAS ---
Rehab Reassessment Rehab OP Re-assessment Start: 02/03/21 14:39 Freq: Status: Active Protocol: Document 02/03/21 14:40 RMJUAN FRANCISCO (Rec: 02/03/21 14:49 RMARSHALL [id number]) Electronically Signed By Ernestina Gutierrez OT 02/03/21 14:40 Rehab Re-assessment Subjective Subjective Some days it does really good and then other days it doesn' t. Objective Objective Notes Pt continues to be seen twice a week in order to address right hand deficits from CTS. Each session pt engages in R wrist PROM stretching in all directions. Pt engages in strengthening and AROM exercises at right wrist. Modalities are provided in order to decrease pain/ inflammation. Assessment Progress Assessment Progressing as Expected Assessment Notes Pt reports he does feel his wrist is feeling better today. Pt's biggest complaint is continued numbness in the small finger and thumb of right hand. However, he isn't having the numbness in digits 2, 3, or 4 (improvement). His AROM continues to stay within normal limits. His strength has improved since starting therapy, but still remain slightly limited. His dewer strength has also improved but still slightly declined from left hand. 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 Current MMT at right wrist: Ext: 4- Flex: 4- RD: 4- UD: 4- Current right hand dewer strength: 120 lbs Patient goals [address]-4 Goals Not Met See below Revised Goals LT-4 Plan Plan Continue with OT plan of care at this time Frequency of Therapy 2x's a
== END 2021-03-02 09:05 | disposition home or self-care (01) ==
LOC: OT 09:00
PROVIDERS: PCP Internal Medicine Adolescent Medicine; Visit Provider Specialist
DX: R20.0 Anesthesia of skin (principal)
CPT/HCPCS: 97014; 97035; 97110; 97140; 97164; 97166; 97763; G0283

== ENCOUNTER 2021-03-24 14:00 | Outpatient (RCR) | payer BC, SELFPAY | END 2021-03-24 14:05 | disposition home or self-care (01) | LOC: PT 14:00 | PROVIDERS: PCP Internal Medicine Adolescent Medicine; Visit Provider Student in an Organized Health Care Education/Training Program | DX: S83.511A Sprain of anterior cruciate ligament of right knee, initial encounter (principal); S83.521A Sprain of posterior cruciate ligament of right knee, initial encounter | CPT/HCPCS: 97010; 97014; 97110; 97112; 97116; 97140; 97163; 97164; 97530; 97760; G0283 ==

== ENCOUNTER → 2021-05-18 15:23 | Outpatient (CLI) | payer BC, SELFPAY | PROVIDERS: PCP Internal Medicine Adolescent Medicine; Visit Provider Specialist | DX: G47.33 Obstructive sleep apnea (adult) (pediatric) (principal) | CPT/HCPCS: 94762 ==

== ENCOUNTER → 2021-06-15 09:52 | Outpatient (CLI) | payer BC, SELFPAY ==
--- NOTE | 2021-06-15 09:53 | MR_ITS ---
FINAL REPORT CLINICAL HISTORY: Abnormal T2 signal T2-3, suspected posttraumatic. f/u abnormal mri 03-01-21. exam was suppose to be done with and without but patient refused contrast. FINDINGS: Multiplanar MR imaging of the thoracic spine was ordered without and with contrast. Patient declined contrast administration. On the sagittal T2-weighted images, disc degeneration is seen at several levels. There is no evidence of fracture. The vertebral alignment is normal. There is questionable mild increased signal in the ventral aspect of the thoracic cord at T2-3 which is not as well seen as on the priors, could represent cord edema. T2-3: An annular bulge is again identified which indents the thecal sac. There is no significant canal stenosis. T3-4: Small right foraminal disc protrusion is present with mild right neural foraminal narrowing. Mild bulges are seen at several other levels. There is no significant canal stenosis. IMPRESSION: Questionable mild cord edema at T2-3, could represent mild cord edema. No evidence of significant canal stenosis or cord compression. Disc bulges at several levels, greatest at T2-3. Small right foraminal disc protrusion at T3-4. Reviewed, Interpreted and Dictated by Ralph Gates III, MD Transcribed by Stacey Rodriguez Authenticated by Ralph Gates III, MD on 06/15/2021 12:12:53 PM [facility]
== END ==
PROVIDERS: PCP Internal Medicine Adolescent Medicine; Visit Provider Specialist
DX: G95.9 Disease of spinal cord, unspecified (principal)
CPT/HCPCS: 72146

== ENCOUNTER → 2022-04-16 12:36 | Outpatient (CLI) | payer BC, SELFPAY ==
[2022-04-16 13:23] LABS: Basophils # 0.1 K/mm3 (0-0.2); Basophils % 0.8 % (0.1-2.0); Eosinophils # 0.3 K/mm3 (0.0-0.4); Eosinophils % 3.4 % (0.1-12.0); Hematocrit 43.6 % (42.0-52.0); Hemoglobin 13.6 g/dL (14.1-18.0); Lymphocytes # 2.4 K/mm3 (0.7-4.5); Lymphocytes % 28.7 % (10-50); Mean Corpuscular HGB Conc 31.2 g/dL (31.8-35.4); Mean Corpuscular Hemoglobin 25.9 pg (27.0-31.2); Mean Platelet Volume 7.9 fl (7.4-10.4); Monocytes # 0.5 K/mm3 (0.1-1.0); Monocytes % 5.4 % (1.7-9.3); Neutrophils # 5.1 K/mm3 (1.8-7.8); Neutrophils % 61.7 % (37.0-80.0); Platelet Count 469 K/mm3 (142-424); Red Blood Count 5.25 M/mm3 (4.60-6.20); White Blood Count 8.2 K/mm3 (4.8-10.8)
[2022-04-16 13:57] LABS: Hemoglobin A1C 5.9 % (4.0-6.0)
[2022-04-16 14:13] LABS: Alanine Aminotransferase 31 U/L (12-78); Albumin Level 4.1 g/dl (3.5-5.0); Albumin/Globulin Ratio 1.2 (1.1-1.8); Alkaline Phosphatase 75 U/L (38-126); Anion Gap 11.5 mEq/L (5-15); Aspartate Amino Transferase 26 U/L (17-59); Blood Urea Nitrogen 8 mg/dl (9-20); Calcium 9.4 mg/dl (8.4-10.2); Carbon Dioxide 25 mmol/L (22.0-30.0); Chloride 106 mmol/L (98-107); Chol/HDL Ratio 3.6 (1-3.5); Cholesterol 131 mg/dl (140-200); Estimated Glomerular Filt Rate 109 ml/min (>60); GFR (African American) 132 ML/MIN (>60); Globulin 3.4 g/dL (1.3-3.2); Glucose 98 mg/dl (74-100); HDL Cholesterol 36 mg/dl (40-60); Potassium 4.5 mmoL/L (3.5-5.1); Sodium 138 mmol/L (136-145); Total Protein,Serum 7.5 g/dl (6.3-8.2); Triglycerides 134 mg/dl (30-150); VLDL Cholesterol 27 mg/dL (0-40)
[2022-04-16 14:22] LABS: Bilirubin,Total 0.1 mg/dl (0.2-1.3)
[2022-04-16 14:24] LABS: Direct LDL Cholesterol 64.82 mg/dL (100-129)
[2022-04-16 14:43] LABS: Thyroid Stimulating Hormone 1.51 uIU/mL (0.465-4.68)
[2022-04-18 12:58] LABS: Insulin Level Total 30.5 uIU/mL (2.6-24.9)
== END ==
LOC: LAB 12:37
PROVIDERS: PCP Internal Medicine Adolescent Medicine; Visit Provider Internal Medicine Adolescent Medicine
DX: I49.9 Cardiac arrhythmia, unspecified (principal); I10 Essential (primary) hypertension; M54.50 Low back pain, unspecified; E66.01 Morbid (severe) obesity due to excess calories; Z68.43 Body mass index [BMI] 50.0-59.9, adult; Z79.899 Other long term (current) drug therapy
CPT/HCPCS: 36415; 80053; 80061; 83036; 83525; 84443; 85025

== ENCOUNTER 2022-07-11 13:58 | Emergency (ER) | payer BC, SELFPAY ==
[2022-07-11 13:58] VITALS: BP 141/73; PULSE 78; RESP 16; TEMP 36.4; O2SAT 100; BMI 52.9
[2022-07-11 14:04] VITALS: BP 141/73; PULSE 74; O2SAT 100
[2022-07-11 14:19] LABS: Microscopic, Urine URINE MICROSCOPIC (MICROSCOPIC)
[2022-07-11 14:27] LABS: Basophils % 0.6 % (0.1-2.0); Eosinophils # 0.3 K/mm3 (0.0-0.4); Eosinophils % 3.8 % (0.1-12.0); Hematocrit 43.7 % (42.0-52.0); Hemoglobin 14.1 g/dL (14.1-18.0); Lymphocytes # 1.8 K/mm3 (0.7-4.5); Mean Corpuscular HGB Conc 32.3 g/dL (31.8-35.4); Mean Corpuscular Hemoglobin 26.2 pg (27.0-31.2); Mean Corpuscular Volume 81.1 fl (80-94); Monocytes # 0.3 K/mm3 (0.1-1.0); Neutrophils # 4.4 K/mm3 (1.8-7.8); Neutrophils % 64.5 % (37.0-80.0); Platelet Count 436 K/mm3 (142-424); Red Blood Count 5.39 M/mm3 (4.60-6.20); Red Cell Distribution Width 14.2 % (11.5-17.5); White Blood Count 6.8 K/mm3 (4.8-10.8)
[2022-07-11 14:32] LABS: Appearance,Urine CLEAR (Clear); Bilirubin,Urine Negative (Negative); Blood, Urine Negative (Negative); Color,Urine YELLOW (Yellow); Glucose,Urine (UA) Negative (Negative); Ketones,Urine Negative (Negative); Leukocyte Esterase,Urine Negative (Negative); Nitrate,Urine Negative (Negative); Protein,Urine Negative (Negative); Specific Gravity, Urine 1.015 (1.005-1.030); Urobilinogen,Urine 0.2 EU/dl (0.2)
--- NOTE | 2022-07-11 14:33 | CT_ITS ---
FINAL REPORT TECHNIQUE: Thin section axial images were obtained from the lung bases to the pubic symphysis without IV contrast. Coronal reconstruction images were obtained from the axial data. Exam was performed using dose reduction technique. CLINICAL HISTORY: epigastric pain pt refused iv contrast FINDINGS: The lung bases are clear. There are no renal or ureteral stones. There is no hydronephrosis or perinephric stranding. The gallbladder is present. The unenhanced liver is homogeneous. The spleen, pancreas and right adrenal gland is without acute abnormality. There is a 2 cm left adrenal adenoma. The abdominal portion of the GI tract is without acute abnormality. There is no small bowel obstruction. The appendix is normal. There is diverticulosis without diverticulitis.. There is no lymphadenopathy or ascites. No acute osseous abnormality is identified. IMPRESSION: 1. No renal or ureteral stone or hydronephrosis. 2. No acute abnormality on this unenhanced exam. Reviewed, Interpreted and Dictated by Afsaneh Yu MD Transcribed by Judith Lam Authenticated and [facility]
--- NOTE | 2022-07-11 14:33 | HMH.EDGENADL ---
Discharge Plan Disposition Patient Disposition: Home, Self-Care Condition: Good Prescriptions Prescriptions: New pantoprazole [Protonix] 40 mg tablet,delayed release (DR/EC) 40 mg PO DAILY Qty: 14 0RF No Action metoprolol succinate 100 mg tablet extended release 24 hr 100 mg PO DAILY Qty: 30 5RF losartan-hydrochlorothiazide 100-25 mg tablet See Rx Instructions .ROUTE .COMPLEX Qty: 90 1RF Dose Instruction: TAKE ONE TABLET BY MOUTH EVERY DAY Rx Instructions: TAKE ONE TABLET BY MOUTH EVERY DAY amlodipine 10 MG tablet 10 mg PO DAILY Referrals Follow up/Referrals: Vazquez Fisher MD [Primary Care Provider] - See instructions Activity Restrictions/Add. Instructions Additional Instructions/Restrictions: Follow-up with your primary care provider for further evaluation and care. Suggest discussion about gallbladder ultrasound. Return to the emergency department if symptoms recur. Clinical Impressions Clinical Impression: Acute epigastric pain Instructions Patient Instructions: DI for Acute Abdominal Pain Discharge ED Provider: Miky Muhammad General Adult HPI General Chief complaint: Abdominal Pain Stated complaint: abd pain Time Seen by Provider: 07/11/22 14:27 Mode of Arrival: Ambulatory Source of Information: Patient Limitations: No Limitations Description of Symptoms (Recalled from ER Triage Doc. by RN): pt to ED with epigastric pain since this morning that worsens after eating his breakfast and lunch. pt reported he took an antacid medication with no relief. History of Present Illness HPI narrative: Patient states that he developed pain across his upper abdomen right at the costal margins at 11 AM. He ate lunch at 10 AM and had no pain at that time. The pain radiates straight through to his back. He rates his current pain 7/10. Denies vomiting or diarrhea, denies fever. Denies urinary symptoms. He has had previous similar pain x2, last episode in April but says he did not get evaluated for previous episodes. He has had no prior abdominal surgeries. Related Data Home Medications Medication Instructions Recorded Confirmed amlodipine 10 mg tablet 10 mg PO DAILY High blood pressure 12/24/20 02/27/22 Previous Rx's Medication Instructions Recorded metoprolol succinate 100 mg 100 mg PO DAILY #30 tabs 04/28/21 tablet,extended release 24 hr losartan 100 See Rx Instructions .Route 06/25/22 mg-hydrochlorothiazide 25 mg tablet .COMPLEX #90 tabs pantoprazole 40 mg tablet,delayed 40 mg PO DAILY #14 tabs 03/01/23 release (Protonix) Allergies Allergy/AdvReac Type Severity Reaction Status Date / Time No Known Allergies Allergy Verified 02/27/22 13:03 [facility] Disclaimer: The information contained in this section may have been updated after the patient was seen, as this information can be updated by other users. Medical History (Updated 07/11/22 @ 18:26 by Miky Muhammad MD) Chest pain Dyspnea Gastroesophageal reflux disease Right arm numbness Social History Smoking Status: Never smoker alcohol intake: current counseling provided: none substance use type: denies use current occupational status: employed Travel in the last 8 weeks: None household members: family housing: house ROS Obtained: Yes Systems reviewed as appropriate & no additional complaints except as documented Constitutional Constitutional: Denies fever(s), Denies headache(s) and Denies weakness ENT Ears, Nose, Mouth, and Throat: Denies headache(s), Denies nasal discharge and Denies sore throat Cardiovascular Cardiovascular: Denies chest pain Respiratory Respiratory: Denies shortness of breath and Denies cough Gastrointestinal Gastrointestingal: Reports abdominal pain; Denies constipation, diarrhea or vomiting Genitourinary Male Genitourinary: Denies difficulty urinating and Denies flank pain Musculoskeletal Musculoskeletal: Reports back pain and Denies
[2022-07-11 14:37] LABS: Alanine Aminotransferase 25 U/L (12-78); Albumin Level 4.5 g/dl (3.5-5.0); Alkaline Phosphatase 65 U/L (38-126); Amylase 78 U/L (30-110); Anion Gap 10.8 mEq/L (5-15); Aspartate Amino Transferase 30 U/L (17-59); Bilirubin,Total 0.4 mg/dl (0.2-1.3); Blood Urea Nitrogen 14 mg/dl (9-20); Calcium 8.7 mg/dl (8.4-10.2); Carbon Dioxide 26 mmol/L (22.0-30.0); Chloride 99 mmol/L (98-107); Creatinine Clearance Estimated 122 mL/min (50-200); Estimated Glomerular Filt Rate 94 ml/min (>60); GFR (African American) 114 ML/MIN (>60); Globulin 4.3 g/dL (1.3-3.2); Glucose 141 mg/dl (74-100); Lipase 121 U/L (23-300); Potassium 3.8 mmoL/L (3.5-5.1); Sodium 132 mmol/L (136-145); Total Protein,Serum 8.8 g/dl (6.3-8.2)
[2022-07-11 14:46] LABS: Bacteria,Urine Trace /lpf; Squamous Epithelial Cell,Urine Occasional #/hpf (0-5)
[2022-07-11 15:02] LABS: Troponin I < 0.01 ng/ml (0.00-0.034)
--- NOTE | 2022-07-11 15:19 | PC.NURSE ---
From CT. warm blanket given
--- NOTE | 2022-07-11 15:25 | PC.NURSE ---
abdirizak called and stated the pt refused his IV contrast. this nurse went in and spoke to the patient about the importance of the contrast and how it will help us getter better results from his scan. pt stated it always makes me super nauseous this nurse offered to medicate him to combat the nausea. pt still refused. notified
--- NOTE | 2022-07-11 15:29 | PC.NURSE ---
checked on pt now complaints at this time dimmed his light and gave him a pillow to try and rest little more comfortably mom at bedside
--- NOTE | 2022-07-11 16:21 | ECG_ITS ---
APPROVED REPORT Exam: Resting ECG HR:82 bpm ECG Measurements Heart Rate 82 AXES MI 188 P 71 QRSd 98 QRS 73 QT 363 T -37 QTc 402 Conclusion SINUS RHYTHM MODERATE T-WAVE ABNORMALITY, CONSIDER INFERIOR ISCHEMIA [-0.1+ mV T-WAVE IN II/aVF] ABNORMAL ECG UNCONFIRMED REPORT Electronically signed by : Vazquez Fisher MD 07/12/2022 17:06:42
--- NOTE | 2022-07-11 16:53 | PC.NURSE ---
Called radiology for preliminary reports; it was faxed down and given to ER MD
[2022-07-11 17:24] VITALS: BP 128/88; PULSE 80; O2SAT 97
--- NOTE | 2022-07-11 17:28 | PC.NURSE ---
rounded on pt. when asked pt stated i feel alright right now and rates his pain a 2
[2022-07-11 17:31] VITALS: BP 144/80; PULSE 80; O2SAT 99
--- NOTE | 2022-07-11 17:35 | PC.NURSE ---
rounded on pt states no complaint at this time
--- NOTE | 2022-07-11 18:16 | PC.NURSE ---
rounded on pt he states just patiently waiting for discharge other than that no complaints at this time mom at bedside
[2022-07-11 18:17] LABS: Troponin I < 0.01 ng/ml (0.00-0.034)
[2022-07-11 18:39] VITALS: BP 144/80; PULSE 80; RESP 16; TEMP 36.4; O2SAT 99
== END 2022-07-11 18:41 | disposition home or self-care (01) ==
PROVIDERS: Emergency Provider Emergency Medicine; PCP Internal Medicine Adolescent Medicine
DX: R10.13 Epigastric pain (principal); K21.9 Gastro-esophageal reflux disease without esophagitis; Z86.79 Personal history of other diseases of the circulatory system
CPT/HCPCS: 74176; 80053; 81001; 82150; 83690; 84484; 85025; 93005; 96361; 96374; 96375; 99285

== ENCOUNTER 2023-03-14 06:00 | Emergency (ER) | payer BC, SELFPAY ==
[2023-03-14] VITALS (7 sets, daily range): BP systolic 143–188; BP diastolic 85–115; PULSE 64–72; RESP 14–20; TEMP 36.7–37.1; O2SAT 94–100; BMI 36.6
--- NOTE | 2023-03-14 06:08 | HMH.EDGENADL ---
Discharge Plan Disposition Patient Disposition: Home, Self-Care Prescriptions Prescriptions: New esomeprazole magnesium 20 mg capsule,delayed release(DR/EC) 40 mg PO DAILY 56 Days Qty: 112 1RF No Action losartan-hydrochlorothiazide 100-25 mg tablet See Rx Instructions .ROUTE .COMPLEX Qty: 90 0RF Dose Instruction: TAKE ONE TABLET BY MOUTH EVERY DAY Rx Instructions: TAKE ONE TABLET BY MOUTH EVERY DAY carvedilol 12.5 mg tablet 12.5 mg PO BID Patient Comments: TAKE ONE TABLET BY MOUTH TWICE DAILY amlodipine 10 MG tablet 10 mg PO DAILY Referrals Follow up/Referrals: Vazquez Fisher MD [Primary Care Provider] - See instructions Reggie Maddox MD [Staff Physician] - See instructions (zully outpatient, GI scope) Activity Restrictions/Add. Instructions Additional Instructions/Restrictions: Call your family doctor to establish care for this visit to the emergency department and schedule follow-up within 48 hours to ensure improvement. If you have any worsening of your condition or any other concerning signs or symptoms, return to the emergency department or your primary care doctor for further evaluation. Call Dr. Claros's office about outpatient cholecystectomy (gallbladder removal), as well as upper GI scope for ruling out gastric ulcer. Take medication (esomeprazole) 40 mg each night consistently for 4 weeks. Clinical Impressions Clinical Impression: Abdominal pain, Gallbladder sludge Instructions Patient Instructions: DI for Acute Abdominal Pain Discharge ED Provider: Minh Valdez General Adult HPI <Atif Larson MD - Last Filed: 03/14/23 06:51> General Chief complaint: Abdominal Pain Stated complaint: abd pain Time Seen by Provider: 03/14/23 06:00 Mode of Arrival: Wheelchair Source of Information: Patient Limitations: No Limitations Description of Symptoms (Recalled from ER Triage Doc. by RN): pt c/o Abd pain since 4am. pt denies n/v/d History of Present Illness HPI narrative: 37-year-old male history of morbid obesity presents with sudden onset epigastric/central chest pain, right upper quadrant pain, radiating to his right back. He reports that symptoms have been when he was eating a bologna and cheese sandwich. He reports pain is severe. He reports this is similar to when he had GERD in the past. He is currently on famotidine for reflux. He reports pain is burning in nature. Denies any history of abdominal surgery. Patient admits to intermittent marijuana use, intermittent alcohol use. Related Data Home Medications Medication Instructions Recorded Confirmed amlodipine 10 mg tablet 10 mg PO DAILY High blood pressure 12/24/20 03/14/23 carvedilol 12.5 mg tablet 12.5 mg PO BID 03/14/23 03/14/23 Previous Rx's Medication Instructions Recorded losartan 100 See Rx Instructions .Route 12/24/22 mg-hydrochlorothiazide 25 mg tablet .COMPLEX #90 tabs esomeprazole magnesium 20 mg 40 mg PO DAILY 8 weeks #112 caps 03/14/23 capsule,delayed release Allergies Allergy/AdvReac Type Severity Reaction Status Date / Time No Known Allergies Allergy Verified 02/27/22 13:03 [facility] <Atif Larson MD - Last Filed: 03/14/23 06:51> [facility] Disclaimer: The information contained in this section may have been updated after the patient was seen, as this information can be updated by other users. Medical History (Updated 03/14/23 @ 09:16 by Minh Valdez MD) Chest pain Dyspnea Gastroesophageal reflux disease Right arm numbness Social History Smoking Status: Current every day smoker alcohol intake: current counseling provided: none substance use type: denies use current occupational status: employed Travel in the last 8 weeks: None household members: family housing: house <Atif Larson MD - Last Filed: 03/14/23 06:51> ROS Obtained: Yes All systems reviewed & no additional complaints except as documented Physical Exam <Atif Persaud
--- NOTE | 2023-03-14 06:26 | ECG_ITS ---
APPROVED REPORT Exam: Resting ECG HR:70 bpm ECG Measurements Heart Rate 70 AXES OR 196 P 58 QRSd 109 QRS 32 QT 397 T -3 QTc 418 Conclusion SINUS RHYTHM Late r wave progression ABNORMAL ECG UNCONFIRMED REPORT Electronically signed by : Vazquez Fisher MD 03/14/2023 21:37:30
--- NOTE | 2023-03-14 06:32 | CT_ITS ---
FINAL REPORT CLINICAL HISTORY: epigastric/ruq abd pain COMPARISON: 07/11/2022 FINDINGS: Axial CT images of the abdomen and pelvis were obtained without intravenous contrast. Coronal reformatted images were also obtained.This study was performed with techniques to keep radiation doses as low as reasonably achievable (ALARA). Individualized dose reduction techniques using automated exposure control or adjustment of mA and/or kV according to the patient's size were employed. Abdomen: There is mild scarring in the lung bases. There is no evidence of renal stone or hydronephrosis.The liver, spleen and pancreas have an unremarkable, unenhanced appearance. No mass or adenopathy is seen. No inflammatory process is identified. Pelvis: The appendix is normal. Scattered colonic diverticula are identified. Images of the pelvis reveal no evidence of ureteral dilation or ureteral stone.No mass or abnormal fluid collection is identified. IMPRESSION: No renal or ureteral stone, or hydronephrosis. No mass or inflammatory process. Reviewed, Interpreted and Dictated by Ralph Gates III, MD Transcribed by Stacey Rodriguez Authenticated and [facility]
[2023-03-14 06:35] LABS: Basophils # 0.1 K/mm3 (0-0.2); Basophils % 0.7 % (0.1-2.0); Eosinophils # 0.1 K/mm3 (0.0-0.4); Hematocrit 46.1 % (42.0-52.0); Hemoglobin 15.5 g/dL (14.1-18.0); Lymphocytes # 2.5 K/mm3 (0.7-4.5); Lymphocytes % 36.8 % (10-50); Mean Corpuscular HGB Conc 33.7 g/dL (31.8-35.4); Mean Corpuscular Hemoglobin 27.3 pg (27.0-31.2); Mean Corpuscular Volume 81.1 fl (80-94); Monocytes # 0.6 K/mm3 (0.1-1.0); Monocytes % 8.5 % (1.7-9.3); Neutrophils # 3.6 K/mm3 (1.8-7.8); Platelet Count 361 K/mm3 (142-424); Red Blood Count 5.69 M/mm3 (4.60-6.20); White Blood Count 6.9 K/mm3 (4.8-10.8)
[2023-03-14 06:40] LABS: Alanine Aminotransferase 32 U/L (12-78); Albumin Level 4.8 g/dl (3.5-5.0); Alkaline Phosphatase 56 U/L (38-126); Anion Gap 14.7 mEq/L (5-15); Aspartate Amino Transferase 37 U/L (17-59); Bilirubin,Total 0.4 mg/dl (0.2-1.3); Blood Urea Nitrogen 14 mg/dl (9-20); Calcium 9.2 mg/dl (8.4-10.2); Carbon Dioxide 30 mmol/L (22.0-30.0); Chloride 99 mmol/L (98-107); Creatinine Clearance Estimated 193 mL/min (50-200); Estimated Glomerular Filt Rate 94 ml/min (>60); GFR (African American) 114 ML/MIN (>60); Globulin 4.6 g/dL (1.3-3.2); Glucose 150 mg/dl (74-100); Lipase 126 U/L (23-300); Potassium 3.7 mmoL/L (3.5-5.1); Sodium 140 mmol/L (136-145); Total Protein,Serum 9.4 g/dl (6.3-8.2)
[2023-03-14 07:03] LABS: Troponin I < 0.01 ng/ml (0.00-0.034)
--- NOTE | 2023-03-14 08:02 | PC.NURSE ---
provided pt with a warm blanket. emptied urinal and charted output. provided with another urinal. call light within reach.
== END 2023-03-14 09:44 | disposition home or self-care (01) ==
PROVIDERS: Emergency Medicine; Emergency Provider Emergency Medicine; PCP Internal Medicine Adolescent Medicine
DX: R10.11 Right upper quadrant pain (principal); R07.2 Precordial pain; K82.8 Other specified diseases of gallbladder; K21.9 Gastro-esophageal reflux disease without esophagitis; E66.01 Morbid (severe) obesity due to excess calories; Z68.43 Body mass index [BMI] 50.0-59.9, adult; F17.210 Nicotine dependence, cigarettes, uncomplicated
CPT/HCPCS: 74176; 80053; 83690; 84484; 85025; 93005; 96374; 96375; 99285

== ENCOUNTER → 2023-04-17 11:55 | Outpatient (CLI) | payer BC, SELFPAY ==
[2023-04-22 07:50] LABS: Basophils % 0.5 % (0.1-2.0); Eosinophils # 0.3 K/mm3 (0.0-0.4); Eosinophils % 3.7 % (0.1-12.0); Hematocrit 42.7 % (42.0-52.0); Lymphocytes # 2.6 K/mm3 (0.7-4.5); Lymphocytes % 31.6 % (10-50); Mean Corpuscular HGB Conc 32.8 g/dL (31.8-35.4); Mean Corpuscular Hemoglobin 26.4 pg (27.0-31.2); Mean Corpuscular Volume 80.6 fl (80-94); Mean Platelet Volume 8.1 fl (7.4-10.4); Monocytes # 0.4 K/mm3 (0.1-1.0); Monocytes % 5.2 % (1.7-9.3); Neutrophils # 4.8 K/mm3 (1.8-7.8); Platelet Count 327 K/mm3 (142-424); Red Blood Count 5.31 M/mm3 (4.60-6.20); Red Cell Distribution Width 14.2 % (11.5-17.5); White Blood Count 8.2 K/mm3 (4.8-10.8)
[2023-04-22 08:57] LABS: Chloride 104 mmol/L (98-107); Sodium 138 mmol/L (136-145)
[2023-04-22 08:58] LABS: Potassium 3.8 mmoL/L (3.5-5.1)
[2023-04-22 09:00] LABS: Alanine Aminotransferase 24 U/L (12-78); Alkaline Phosphatase 51 U/L (38-126); Amylase 66 U/L (30-110); Anion Gap 11.8 mEq/L (5-15); Aspartate Amino Transferase 30 U/L (17-59); Bilirubin,Total 0.5 mg/dl (0.2-1.3); Blood Urea Nitrogen 14 mg/dl (9-20); Calcium 8.3 mg/dl (8.4-10.2); Carbon Dioxide 26 mmol/L (22.0-30.0); Estimated Glomerular Filt Rate 94 ml/min (>60); GFR (African American) 114 ML/MIN (>60); Glucose 101 mg/dl (74-100)
[2023-04-22 09:01] LABS: Albumin/Globulin Ratio 1.1 (1.1-1.8); Globulin 3.5 g/dL (1.3-3.2); Lipase 76 U/L (23-300); Total Protein,Serum 7.5 g/dl (6.3-8.2)
== END ==
PROVIDERS: PCP Surgery; Visit Provider Surgery
DX: R10.9 Unspecified abdominal pain (principal)
CPT/HCPCS: 36415; 80053; 82150; 83690; 85025

== ENCOUNTER → 2023-04-22 06:55 | Outpatient (CLI) | payer BC, SELFPAY ==
--- NOTE | 2023-04-22 07:01 | US_ITS ---
FINAL REPORT CLINICAL HISTORY: right upper quad pain COMPARISON: None FINDINGS: Sonographic images of the right upper quadrant were obtained. The pancreas is partially obscured. The liver is fatty infiltrated. There are multiple small echogenic shadowing stones in the gallbladder. There is no evidence of biliary ductal dilatation.The common duct measures 4mm. Limited images of the right kidney are unremarkable. IMPRESSION: Fatty liver. Cholelithiasis. Reviewed, Interpreted and Dictated by Melo Salazar MD Transcribed by Marisela Guadalupe Authenticated and [facility]
== END ==
LOC: RAD 06:55
PROVIDERS: PCP Internal Medicine Adolescent Medicine; Visit Provider Surgery
DX: R10.9 Unspecified abdominal pain (principal)
CPT/HCPCS: 76705

== ENCOUNTER 2023-05-15 06:31 | Day surgery (SDC) | payer BC, SELFPAY ==
--- NOTE | 2023-05-10 11:03 | SUR.PREOP ---
Spoke w/ R Antelmo,,MANUFACTURING WORKER about pt's BMI, gave approval to proceded w/ procedure and is aware.
[2023-05-10 11:14] VITALS: BMI 50.1
[2023-05-15] MEDS: LACTATED RINGERS 1000ML 1,000 ML 25 ML IV (06:43)
[2023-05-15 06:54] VITALS: BP 140/75; PULSE 70; RESP 19; TEMP 36.7; O2SAT 100
--- NOTE | 2023-05-15 06:57 | EXP.ANES.CKL ---
[facility] Disclaimer: The information contained in this section may have been updated after the patient was seen, as this information can be updated by other users. Medical History Chest pain Dyspnea Gastroesophageal reflux disease Right arm numbness Surgical History No significant past surgical history Family History Other Family history of coronary artery disease Social History Smoking Status: Current every day smoker alcohol intake: current counseling provided: none substance use type: denies use current occupational status: employed Travel in the last 8 weeks: None household members: family housing: house [facility] Anesthesia Checklist Patient Identification Patient Identification: Verbal (Name & ) Structural Data Admitted From: Home Planned Operative Procedure/s: egd Consent for Planned Operative Procedure(s) Verified: Yes Airway Assessment Mallampati Score:: Class II C-Spine Mobility Assessed: Yes TMJ Mobility Assessed: Yes Dentition: Good Dentition Neurological Assessment Level of Consciousness: Awake, Alert and Appropriate Anesthesia Plan Anesthesia Risk discussed: Yes Anesthesia Plan: Verified ASA Class: II Anesthesia Type: MAC
--- NOTE | 2023-05-15 07:16 | HMH.SCOPE ---
Procedure: Date: 05/15/23 Patient Date of :: 1985 Procedure Performed:: Esophagogastroduodenoscopy with biopsy Indications:: Epigastric pain Performing Provider:: Reggie Maddox MD Referring Provider:: . Sedation:: Monitored anesthesia care Procedure:: After informed consent was obtained the patient was taken to the endoscopy suite. Sedation ensued after the patient was transferred to the left lateral decubitus position. Pulse, blood pressure, and oxygen saturation were monitored throughout the procedure. The endoscope was advanced beyond the duodenal bulb. Retroflexion within the gastric lumen was accomplished. The gastroscope was carefully removed and the patient was transferred to recovery in stable condition. Please see findings and specimens below for detail. Findings:: Gastroesophageal junction at 44 cm Small hiatal hernia noted on maximum insufflation Mild patchy inflammatory changes to mid/distal gastric body Specimens:: Antral biopsy Recommendations:: Continue proton pump inhibition Follow-up pathology Discuss recent right upper quadrant ultrasound confirming cholelithiasis (patient presented with intermittent epigastric and right upper quadrant pain) Complications:: No immediate Estimated blood obtained (mL): 1 Colonoscopy Component Colonoscopy Component Was a colonoscopy performed during today's procedure?: No
[2023-05-15 07:24] VITALS: O2SAT 100
[2023-05-15 07:40] VITALS: BP 100/60; PULSE 92; RESP 16; TEMP 36.4; O2SAT 98
[2023-05-15 07:50] VITALS: BP 100/50; PULSE 82; RESP 17; O2SAT 96
[2023-05-15 08:00] VITALS: BP 100/62; PULSE 81; RESP 17; O2SAT 98
[2023-05-15 08:10] VITALS: BP 105/60; PULSE 81; RESP 16; TEMP 36.6; O2SAT 98
== END 2023-05-15 08:20 | disposition home or self-care (01) ==
PROVIDERS: PCP Internal Medicine Adolescent Medicine; Visit Provider Surgery
PROC: 0DJ08ZZ Inspection of Upper Intestinal Tract, Via Natural or Artificial Opening Endoscopic (ICD-10-PCS; CPT 43235; principal; 2023-05-15 07:30)
DX: K44.9 Diaphragmatic hernia without obstruction or gangrene (principal); K31.89 Other diseases of stomach and duodenum
CPT/HCPCS: 43239

== ENCOUNTER 2025-01-13 07:06 | Emergency (ER) | payer SELFPAY ==
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
--- OUTSIDE RECORDS SUMMARY | 2025-01-13 07:15 | XMS_ITS | Encounter Summary ---
Author Organization Healthcare Address [address] [place] [address] Care Team Providers Care Aboriginal Community Council Member Name Role Phone Vazquez Fisher MD Primary Care Provider [phone] Encounter Details Date Type Department Care Team (Late st Contact Info) Description 10/24/2020 Lab Requisition [facility] [address] [place] [address] Jillian Manuel MD [id number] [place] [address] Encounter for general adult medical examination without abnormal findings Social History Tobacco Use Types Packs/Day Years Used Date Smoking Tobacco: Never Smokeless Tobacco: Never Alcohol Use Standard Drinks/Week Comments Not Currently 0 (1 standard drink = 0.6 oz pur e alcohol) Sex and Gender Information Value Date Recorded Sex Assigned at Not on file Legal Sex Male 9:45 AM EDT Gender Identity Not on file Sexual Orientation Not on file COVID-19 Exposure Response Date Recorded In the last month, have you been in contact with someone who was confirmed or suspected to have Coronavirus / COVID-19? No / Unsure 10/20/2020 6:37 PM EDT documented as of this encounter Plan of Treatment Not on file documented as of this encounter Procedures Procedure Name Priority Date/Time Associated Diagnosis Comments MULTI DRUG RESISTANCE TEST Routine 10/24/2020 10:03 AM EDT Encounter for general adult medical examination without abnormal findings documented in this encounter Results * Multi Drug Resistance Test (10/24/2020 10:03 AM EDT) Culture No Multi Drug Resistant Organisms Isolated 10/28/2020 2:23 PM EDT [facility] Swab (Nares and Kyara Rectal) 10/24/2020 10:03 AM EDT 10/24/2020 5:17 PM EDT Jillian Mooney MD LAB MICROBIOLOGY - GENERAL ORDERABLES Final Result Performing Organization Address City/State/[facility] Co de Phone Number [facility] [address] [place] [phone] documented in this encounter Visit Diagnoses Diagnosis Encounter for general adult medical examination without abnormal findings documented in this encounter Care Teams Aboriginal Community Council Member Relationship Specialty Start Date End Date Vazquez Fisher MD [address] [place] [address] PCP - General 10/20/20 documented as of this encounter
[2025-01-13 07:18] VITALS: BP 166/107; PULSE 84; RESP 18; TEMP 37; O2SAT 99; BMI 50.1
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
--- NOTE | 2025-01-13 07:31 | HMH.EDGENADL ---
Discharge Plan Disposition Patient Disposition: Home, Self-Care Prescriptions Prescriptions: No Action Clenpiq 10 mg-3.5 gram- 12 gram/175 mL solution 175 ml PO DAILY Qty: 350 0RF Rx Instructions: take first dose at 5-9PM evening before colonoscopy; 2nd dose the next day approximately 5 hrs before colonoscopy losartan-hydrochlorothiazide 100-25 mg tablet 1 tab PO DAILY Rx Instructions: TAKE ONE TABLET BY MOUTH EVERY DAY carvedilol 12.5 mg tablet 12.5 mg PO BID Patient Comments: TAKE ONE TABLET BY MOUTH TWICE DAILY esomeprazole magnesium 20 mg capsule,delayed release(DR/EC) 40 mg PO DAILY 56 Days Qty: 112 1RF amlodipine 10 MG tablet 10 mg PO DAILY Referrals Follow up/Referrals: Vazquez Fisher MD [Primary Care Provider, Internal Medicine] - See instructions Reggie Maddox MD [Staff Physician, General Surgery] - See instructions Activity Restrictions/Add. Instructions Additional Instructions/Restrictions: At this time it was felt you are safe to be discharged home. If new or worsening symptoms please do not hesitate to return the emergency department. As discussed please call and schedule appoint with Dr. Maddox for continued evaluation. There was also a spot on your adrenal gland which is likely benign as many people have these but they do need to be followed over time please follow-up with your family doctor for continued evaluation of this. Clinical Impressions Clinical Impression: Symptomatic cholelithiasis, Adrenal adenoma Instructions Patient Instructions: DI for Acute Abdominal Pain Print Language Print Language: Tajik Discharge ED Provider: Jose Hall General Adult HPI General Chief complaint: Abdominal Pain Stated complaint: R side abd pain Time Seen by Provider: 01/13/25 07:13 Mode of Arrival: Ambulatory Source of Information: Patient Description of Symptoms (Recalled from ER Triage Doc. by RN): patient sta//rubén around 1 am he began having stabbing RUQ pain that radiates to his mid back. he denies any nausea vomiting. 12/20 pain History of Present Illness HPI narrative: Patient is a 39-year-old male with past medical history of known cholelithiasis presents emergency department for evaluation abdominal pain. Onset was acute, approxi-1 AM this morning, does not think he ate right before this. No abdominal surgical history no chest pain. He has had symptoms prior to this and was pending outpatient cholecystectomy for which he scheduled and then did not follow through with because his symptoms had resolved. Unfortunately they have resurged who presents here for continued evaluation. [employer] Designer disclaimer Much of this encounter note is an electronic applications coordinator spoken language to printed text. Electronic applications coordinator of the spoken language may permit errors. Although I have reviewed the note, some errors may still exist. Related Data Home Medications ?Medication ?Instructions ?Recorded ?Confirmed amlodipine 10 mg tablet 10 mg PO DAILY High blood pressure 12/24/20 11/04/24 carvedilol 12.5 mg tablet 12.5 mg PO BID 03/14/23 11/04/24 losartan 100 1 tab PO DAILY 11/04/24 mg-hydrochlorothiazide 25 mg tablet Previous Rx's ?Medication ?Instructions ?Recorded esomeprazole magnesium 20 mg 40 mg (2 x 20 mg) PO DAILY 8 weeks 03/14/23 capsule,delayed release #112 caps sod picosulf 10 mg-magnes 3.5 175 ml PO DAILY 2 doses #350 mL 11/04/24 gram-citric 12 gram/175 mL oral solution (Clenpiq) Allergies Allergy/AdvReac Type Severity Reaction Status Date / Time No Known Allergies Allergy Verified 05/22/23 14:27 [facility] Disclaimer: The information contained in this section may have been updated after the patient was seen, as this information can be updated by other users. Medical History (Updated 01/13/25 @ 10:25 by Jose Hall MD) Dyspnea Right arm numbness Chest pain Gastroesophageal reflux disease Surgical History History of esophagogastroduodenoscopy (EGD) Family History Other Family history of coronary artery disease Social History (Updated 11/04/24 @ 11:21 by Salma Fischer RN) Smoking Status: Never smoker alcohol intake: never counseling provided: none substance use type: denies use current occupational status: employed Travel in the last 8 weeks?: None household members: family housing: house Have you lived/traveled outside [place] in past 30 days?: No Contact w/someone who lives/traveled outside [place] past 30 days?: No Exposure to someone with infectious disease in past 14 days?: No Do you have a fever (greater than 100.4 F or 38 C)?: No Have you tested positive for COVID-19?: No Exposed to someone with COVID-19 in past 14 days?: No Do you have a sore throat?: No Do you have a cough?: No Do you have any weakness?: No Do you have any diarrhea?: No Are you experiencing any unusual bleeding?: No Do you have any muscle aches/pain?: No Do you have any abdominal pain?: Yes Are you experiencing loss of taste or smell?: No Other Medical History Have you received the Flu Vaccine for this season: No Have you received the Pneumonia Vaccine: No ROS Obtained: Yes Systems reviewed as appropriate & no additional complaints except as documented Physical Exam General General appearance: alert Comment: Appearing uncomfortable in bed Head Head exam: atraumatic and normocephalic Eye Eye exam: Present PERRL ENT ENT exam: Present mucous membranes moist Neck Neck exam: Present normal inspection Chest Chest inspection: Present normal inspection and symmetric chest wall rise Respiratory Respiratory exam: Absent respiratory distress Cardiovascular Cardiovascular exam: Present regular rate and normal rhythm Abdominal Exam Abdominal exam: Present soft and tenderness (Right upper quadrant); Absent rigidity Extremities Exam Extremities exam: Present normal inspection Neurological Exam Neurological exam: Present alert Psychiatric Psychiatric exam: Present normal affect Skin Skin exam: Present warm and dry Medical Decision Making Medical Records Screening: Per USPSTF and CDC recommendations, given the prevalence of disease in our region, it is our hospital?s policy to screen for HIV and viral Hepatitis for all patients aged 18 and over and those with ongoing risk factors. [place] Inquiry Pt receiving controlled substance: No Vital Signs: 01/13/25 07:18 Temperature 98.6 F Temperature Source Oral Pulse Rate [Right Radial] 84 Respiratory Rate 18 Blood Pressure [Right Arm] 166/107 H Blood Pressure Mean [Right Arm] 126 Blood Pressure Source [Right Arm] Automatic Cuff Blood Pressure Position [Right Arm] Sitting 02 Sat by Pulse Oximetry 99 Oxygen Delivery Method Room Air Lab Data Lab Results 01/13/25 07:12: Urine Color Straw, Urine Appearance Clear, Urine pH 8.0, Ur Specific [place] 1.020, Urine Protein Negative, Urine Glucose (UA) Negative, Urine Ketones Negative, Urine Blood Negative, Urine Nitrate Negative, Urine Bilirubin Negative, Urine Urobilinogen 0.2, Ur Leukocyte Esterase Negative 01/13/25 07:36: WBC 9.1, RBC 5.57, Hgb 14.4, Hct 43.7, MCV 78.5 L, MCH 25.9 L, MCHC 33.0, RDW 13.5, Plt Count 401, MPV 9.5, Neut % (Auto) 76.4, Lymph % (Auto) 17.8, [place] % (Auto) 4.8, Eos % (Auto) 0.4, Baso % (Auto) 0.4, Neut # (Auto) 6.9, Lymph # (Auto) 1.6, [place] # (Auto) 0.4, Eos # (Auto) 0.0, Baso # (Auto) 0.0, Sodium 133 L, Potassium 3.5, Chloride 96 L, Carbon Dioxide 27, Anion Gap 13.5, BUN 11, Creatinine 0.90, Estimated Creat Clear 120, Estimated GFR 93, Est GFR ( Amer) 113, Glucose 130 H, Calcium 9.0, Total Bilirubin 0.6, AST 33, ALT 28, Alkaline Phosphatase 59, Troponin I < 0.01, Total Protein 8.8 H, Albumin 4.6, Globulin 4.2 H, Albumin/Globulin Ratio 1.1, Lipase 274 01/13/25 07:36 01/13/25 07:36 Orders (Tests/Meds): ED MEDICATIONS Discontinued Medications Generic Name Dose Route Start Last Admin Trade Name Zohreh PRN Reason Stop Dose Admin Iopamidol 90 ml 01/13/25 08:22 01/13/25 08:29 Iopamidol-370 (76%);100ml Bottle IV 01/13/25 08:23 90 ml ONCE ONE Administration Ketorolac Tromethamine 30 mg 01/13/25 07:24 01/13/25 07:37 Ketorolac 30mg/Ml Vial IV 01/13/25 07:25 30 mg ONCE ONE Administration Morphine Sulfate 4 mg 01/13/25 07:24 01/13/25 07:37 Morphine 4mg/Ml Syringe IV 01/13/25 07:25 4 mg ONCE ONE Administration Ondansetron HCl 4 mg 01/13/25 07:24 01/13/25 07:36 Ondansetron 4mg/2ml Vial IV 01/13/25 07:25 4 mg ONCE ONE Administration Promethazine HCl 12.5 mg 01/13/25 08:15 01/13/25 08:15 Promethazine Hcl 25mg/Ml 1ml Vial IV 01/13/25 08:16 12.5 mg ONCE ONE Administration Sodium Chloride 25 ml 01/13/25 08:15 01/13/25 08:15 Sodium Chloride 0.9% 25ml Bag IV 01/13/25 08:16 25 ml ONCE ONE Administration Sodium Chloride 10 ml 01/13/25 08:22 01/13/25 08:23 Sodium Chloride 0.9% 10ml Syr (Rad Only) IV 01/13/25 08:23 10 ml ONCE ONE Administration ORDERS Category Date Time Status CT abdomen pelvis w con Stat Cat Scan 01/13/25 07:29 Completed POCUS Point of Care (ER Only) Stat Exams 01/13/25 07:15 Completed CBC w/Auto Diff [Complete Blood Count Auto Diff] Stat Lab 01/13/25 07:36 Completed CMP [Comprehensive Metabolic Panel] Stat Lab 01/13/25 07:36 Completed HIV Combo Stat Lab 01/13/25 07:36 Received Hepatitis C Ab Qual. W/ RFX Stat Lab 01/13/25 07:36 Received Lipase Stat Lab 01/13/25 07:36 Completed Trop I [Troponin I] Stat Lab 01/13/25 07:36 Completed Troponin I Q3H Lab 01/13/25 10:30 Ordered Troponin I Q3H Lab 01/13/25 13:30 Ordered UA [Urinalysis and Microscopic] Stat Lab 01/13/25 07:12 Results EKG Request [ECG Request] Stat Y 01/13/25 07:15 Ordered ECG Data Tracing #1: Independently interpreted by me rate is 70, rhythm is regular, axis is normal, no ST elevation in anatomical contiguous leads, QTc 408. Medical Decision Narrative: In summary patient is a 39-year-old male past medical history of scrota above presents emergency department for evaluation of right upper quadrant abdominal pain in the setting of previous known cholelithiasis with pending outpatient surgery that was lost to follow-up. Patient is hemodynamically stable and nontoxic-appearing upon arrival appearing in pain, afebrile. Workup will be conducted with hematologic labs, CT abdomen pelvis IV contrast [id number] ultrasound, EKG, urinalysis. Initial interventions include multimodal pain control, crystalloid bolus. [id number] ultrasound at bedside had limited views but there appears to be a stone in the gallbladder neck no obvious pericholecystic fluid. Will proceed with advanced diagnostic imaging. Initial hematologic labs reviewed by me no leukocytosis no transfusable anemia mild nonactionable hyponatremia and hypochloremia consistent with patient's vomiting no elevated anion gap initial troponin undetectably low lipase normal urinalysis dip interpreted by me and is negative for infection. CT imaging informally interpreted by me no large pericholecystic fluid collection or obvious stone on CT. CT of the abdomen pelvis gallbladder is present there is a probable left adrenal adenoma, no other acute pathology is reported. Given this and the fact that high likely small gallstone on ultrasound he has previous documented gallstones on ultrasound with no evidence of obstructive hepatopathy and a repeat evaluation patient was resting comfortably in bed with total resolution of pain I suspect the patient has a CT radiolucent gall stone with symptomatic cholelithiasis and he will need to follow-up with surgery on an outpatient basis and he verbalized understanding. Procedure: Procedure performed right upper quadrant ultrasound. Procedure form I Jose Hall. Using the curvilinear probe the right upper quadrant ultrasound limited views were obtained which had limited views of the gallbladder that were technically limited due to body habitus however I was able to see a gallstone that appears in the gallbladder neck without obvious pericholecystic fluid. Images were saved to her primary archive and did necessitate further imaging. Critical Care Critical Care Time Critical Care Time: No
[2025-01-13] MEDS: ONDANSETRON 4MG/2ML VIAL 4 MG IV (07:36)
[2025-01-13] MEDS: MORPHINE 4MG/ML SYRINGE 4 MG IV (07:37)
[2025-01-13] MEDS: KETOROLAC 30MG/ML VIAL 30 MG IV (07:37)
[2025-01-13 07:43] LABS: Microscopic, Urine URINE MICROSCOPIC (MICROSCOPIC)
[2025-01-13 07:47] LABS: Bilirubin,Urine Negative (Negative); Glucose,Urine (UA) Negative (Negative); Ketones,Urine Negative (Negative); Leukocyte Esterase,Urine Negative (Negative); PH,Urine 8.0 (5.0-8.5); Protein,Urine Negative (Negative); Specific Gravity, Urine 1.020 (1.005-1.030); Urobilinogen,Urine 0.2 EU/dl (0.2)
[2025-01-13 07:48] LABS: Hematocrit 43.7 % (42.0-52.0); Hemoglobin 14.4 g/dL (14.1-18.0); Immature Granulocytes % 0.2 %; Mean Corpuscular HGB Conc 33.0 g/dL (31.8-35.4); Mean Corpuscular Hemoglobin 25.9 pg (27.0-31.2); Mean Corpuscular Volume 78.5 fl (80-94); Nucleated Red Blood Cells % 0 %; Platelet Count 401 K/mm3 (142-424); Red Blood Count 5.57 M/mm3 (4.60-6.20); Red Cell Distribution Width-SD 38.3 fL; White Blood Count 9.1 K/mm3 (4.8-10.8)
[2025-01-13 07:57] LABS: Color,Urine Straw (Yellow)
[2025-01-13 07:58] LABS: Alanine Aminotransferase 28 U/L (12-78); Albumin Level 4.6 g/dl (3.5-5.0); Albumin/Globulin Ratio 1.1 (1.1-1.8); Alkaline Phosphatase 59 U/L (38-126); Anion Gap 13.5 mEq/L (5-15); Aspartate Amino Transferase 33 U/L (17-59); Bilirubin,Total 0.6 mg/dl (0.2-1.3); Blood Urea Nitrogen 11 mg/dl (9-20); Calcium 9.0 mg/dl (8.4-10.2); Carbon Dioxide 27 mmol/L (22.0-30.0); Chloride 96 mmol/L (98-107); Creatinine Clearance Estimated 120 mL/min (50-200); Creatinine,Serum 0.90 mg/dl (0.66-1.25); Estimated Glomerular Filt Rate 93 ml/min (>60); GFR (African American) 113 ML/MIN (>60); Globulin 4.2 g/dL (1.3-3.2); Glucose 130 mg/dl (74-100); Lipase 274 U/L (23-300); Potassium 3.5 mmoL/L (3.5-5.1); Sodium 133 mmol/L (136-145); Total Protein,Serum 8.8 g/dl (6.3-8.2)
[2025-01-13 08:10] LABS: Troponin I < 0.01 ng/ml (0.00-0.034)
[2025-01-13] MEDS: SODIUM CHLORIDE 0.9% 25ML BAG 25 ML IV (08:15)
[2025-01-13] MEDS: PROMETHAZINE HCL 25MG/ML 1ML VIAL 12.5 MG IV (08:15)
[2025-01-13] MEDS: SODIUM CHLORIDE 0.9% 10ML SYR (RAD ONLY) 10 ML IV (08:23)
[2025-01-13] MEDS: IOPAMIDOL-370 (76%);100ML BOTTLE 90 ML IV (08:29)
[2025-01-13 09:51] VITALS: BP 183/105; BP 183/108; PULSE 74; O2SAT 96
[2025-01-13 10:30] VITALS: PULSE 78; O2SAT 95
[2025-01-13 10:38] VITALS: BP 138/88; PULSE 70; RESP 14; TEMP 37; O2SAT 99
[2025-01-13 11:00] LABS: WBC,Urine Occasional #/hpf (0-3)
[2025-01-13 11:26] LABS: Hepatitis C Ab Qual. W/ RFX NEGATIVE (Negative)
== END 2025-01-13 10:42 | disposition home or self-care (01) ==
PROVIDERS: Emergency Provider Emergency Medicine; PCP Internal Medicine Adolescent Medicine
DX: R10.11 Right upper quadrant pain (principal); K80.20 Calculus of gallbladder without cholecystitis without obstruction; R93.5 Abnormal findings on diagnostic imaging of other abdominal regions, including retroperitoneum
CPT/HCPCS: 74177; 80053; 81001; 83690; 84484; 85025; 86803; 87389; 93005; 96374; 96375; 99285; J1885; J2270; J2405; J2550; Q9967